=== PATIENT | male | born 2000 | race Caucasian/White ===

== ENCOUNTER 2021-01-02 15:37 | Emergency (ER) | payer BC, SELFPAY ==
[2021-01-03 16:27] LABS: SARS-CoV-2 PCR by NAA Not Detected (NotDetected)
[2021-01-05 12:13] LABS: Lyme IgG/IgM AB <0.91 ISR (0.00-0.90)
== END 2021-01-02 17:15 | disposition home or self-care (01) ==
LOC: CSHERS 15:37
DX: R50.9 Fever, unspecified (principal); L30.9 Dermatitis, unspecified; F17.290 Nicotine dependence, other tobacco product, uncomplicated; A64 Unspecified sexually transmitted disease; Z20.822 Contact with and (suspected) exposure to COVID-19
CPT/HCPCS: 86618; 86757; 99283; U0003; U0005